=== PATIENT | female | born 1960 | race Caucasian/White ===

== ENCOUNTER 2018-09-22 10:38 | Emergency (ER) | payer BC ==
--- NOTE | 2018-09-22 10:50 | PDOC ---
History of Present Illness - General Chief Complaint: Revisit, Lab Variance Stated Complaint: SENT FOR REPEAT CBC HAD LOW HGB S/P KNEE SURGER Time Seen by Provider: 09/22/18 10:49 Past History - Past Medical History Allergies/Adverse Reactions: Allergies Allergy/AdvReac Type Severity Reaction Status Date / Time apricot Allergy Intermediate Itching Verified 09/22/18 10:45 mark Allergy Intermediate Itching Verified 09/22/18 10:44 pear Allergy Intermediate Itching Verified 09/22/18 10:44 plum Allergy Intermediate Itching Verified 09/22/18 10:44 pollen extracts Allergy Intermediate Itching Verified 09/22/18 10:45 Penicillins Allergy Mild Rash Verified 09/22/18 10:43 Home Medications: Ambulatory Orders Aspirin 81 mg PO BID 09/22/18 Meloxicam [Mobic] 7.5 mg PO DAILY 09/22/18 Oxycodone HCl 5 mg PO PRN 09/22/18 *DC/Admit/Observation/Transfer - Discharge Dispostion Condition at time of disposition: Stable - Referrals - Patient Instructions - Post Discharge Activity
[2018-09-22 11:02] VITALS: BP 105/47; PULSE 85; TEMP 98.1; BMI 25.6
[2018-09-22 11:27] LABS: BASO % 0.2 % (0-2.0); EOS % 1.5 % (0-4.5); HEMATOCRIT 28.2 % (32.4-45.2); LYMPH % 18.4 % (8-40); MCH 30.6 pg (25.7-33.7); MEAN CELL VOLUME 95.7 fl (80-96); MEAN PLT VOLUME 6.5 fl (7.5-11.1); MONO % 9.1 % (3.8-10.2); NEUT % 70.8 % (42.8-82.8); RBC 2.95 M/mm3 (3.60-5.2); RDW 15.8 % (11.6-15.6); WHITE BLOOD COUNT 6.3 K/mm3 (4.0-10.8)
[2018-09-22 11:40] LABS: ALBUMIN 3.6 g/dl (3.4-5.0); ALK PHOS 117 U/L (45-117); ANION GAP 8 MMOL/L (8-16); BILIRUBIN,TOTAL 1.9 mg/dl (0.2-1); BLOOD UREA NITROGEN 21 mg/dl (7-18); CALCIUM 9.4 mg/dl (8.5-10); CHLORIDE 106 mmol/L (98-107); CO2 24 mmol/L (21-32); CREATININE 0.5 mg/dl (0.55-1.3); GLUCOSE,RANDOM 84 mg/dl (74-106); POTASSIUM 4.5 mmol/L (3.5-5.1); SGOT/AST 38 U/L (15-37); SGPT/ALT 74 U/L (13-61); SODIUM 138 mmol/L (136-145)
[2018-09-22 11:53] LABS: PLATELET COUNT 632 K/MM3 (134-434)
[2018-09-22 11:55] LABS: PLATELET ESTIMATE INCREASED
--- NOTE | 2018-09-22 13:45 | PDOC ---
History of Present Illness - General Chief Complaint: Revisit, Lab Variance Stated Complaint: SENT FOR REPEAT CBC HAD LOW HGB S/P KNEE SURGER Time Seen by Provider: 09/22/18 10:49 - History of Present Illness Initial Comments: 09/22/18 13:36 58 years old with past medical history significant for recent bilateral knee replacement who presents to the emergency department for generalized weakness since her surgery She states that during her hospitalization at [facility] her hemoglobin was 7.6 she was instructed to follow up with her PCP this week to have it rechecked however her PCP recently moved and she did not have a doctor to follow-up with Complains only generalized weakness which has been persistent constant since the surgery no chest pain or shortness of breath no nausea no vomiting or diarrhea Symptoms are mild persistent constant with no exacerbating or relieving factors. Past History - Past Medical History Allergies/Adverse Reactions: Allergies Allergy/AdvReac Type Severity Reaction Status Date / Time apricot Allergy Intermediate Itching Verified 09/22/18 10:45 mark Allergy Intermediate Itching Verified 09/22/18 10:44 pear Allergy Intermediate Itching Verified 09/22/18 10:44 plum Allergy Intermediate Itching Verified 09/22/18 10:44 pollen extracts Allergy Intermediate Itching Verified 09/22/18 10:45 Penicillins Allergy Mild Rash Verified 09/22/18 10:43 Home Medications: Ambulatory Orders Aspirin 81 mg PO BID 09/22/18 Desloratadine 5 mg PO DAILY #30 tablet 09/22/18 Iron 18 mg PO DAILY 14 Days tablet 09/22/18 Meloxicam [Mobic] 7.5 mg PO DAILY 09/22/18 Montelukast Sodium [Singulair] 10 mg PO DAILY 30 Days tablet 09/22/18 Nedocromil Sodium [Alocril] 5 ml OP BID 30 Days drops 09/22/18 Oxycodone HCl 5 mg PO PRN 09/22/18 COPD: No Other medical history: DENIES - Suicide/Smoking/Psychosocial Hx Smoking History: Never smoked Information on smoking cessation initiated: No Hx Alcohol Use: No Drug/Substance Use Hx: No Review of Systems - Review of Systems Comments:: 09/22/18 13:37 ROS: A complete review of 10 out of 10 review of systems is taken and is negative apart from what is previously mentioned below and in the HPI. *Physical Exam - Vital Signs Last Vital Signs Temp Pulse Resp BP Pulse Ox 98.1 F 85 16 105/47 L 99 09/22/18 10:42 09/22/18 10:42 09/22/18 10:42 09/22/18 10:42 09/22/18 10:42 - Physical Exam Comments: 09/22/18 13:38 Vitals: Triage Vital signs reviewed General Appearance: no acute distress, well nourished well developed, Head: Atraumatic, Eyes: Pupils equal reactive round, extraocular movement intact Cardiac: Regular rate and rhythym, no murmurs, no rubs, no gallops, Lungs: Clear to auscultation bilateral, good air movement bilaterally, Abdomen: Soft, non distended, normal bowel sounds, non tender to palpation Extremities: Full range of motion to all extremities, Skin: Warm and dry, no rashes or lesions, no rash, no petechiae Psych: normal mood, normal affect ED Treatment Course - LABORATORY CBC & Chemistry Diagram: 09/22/18 11:10 09/22/18 11:10 - ADDITIONAL ORDERS Additional order review: Laboratory Results 09/22/18 11:10 Sodium 138 Potassium 4.5 Chloride 106 Carbon Dioxide 24 Anion Gap 8 BUN 21 H Creatinine 0.5 L Creat Clearance w eGFR 125.85 Random Glucose 84 Calcium 9.4 Total Bilirubin 1.9 H AST 38 H ALT 74 H Alkaline Phosphatase 117 Total Protein 6.0 L Albumin 3.6 09/22/18 11:10 RBC 2.95 L MCV 95.7 MCHC 32.0 RDW 15.8 H MPV 6.5 L Neutrophils % 70.8 Lymphocytes % 18.4 Monocytes % 9.1 Eosinophils % 1.5 Basophils % 0.2 - RADIOLOGY Radiology Studies Ordered: Category Date Time Status ABDOMEN US -LIMITED [US] Stat Ultrasound 09/22/18 12:13 Completed Medical Decision Making - Medical Decision Making 09/22/18 13:39 Presents emergency department for repeat hemoglobin CBC and chemistry check Hemoglobin 9 no indication for transfusion Chemistry notable for slightly elevated LFTs which patient states she has had before A follow-up ultrasound was ordered which demonstrates no acute pathology no CBD dilatation, no gallstones no gallbladder no pericholecystic fluid very mild gallbladder wall thickening for which the patient was provided with both clinic and GI follow-up. We will have the follow-up patient follow up in our clinic this week Findings, the need for follow-up and strict return instructions discussed with patient. 09/22/18 13:57 *DC/Admit/Observation/Transfer Diagnosis at time of Disposition: Weakness - Discharge Dispostion Disposition: HOME Condition at time of disposition: Stable Decision to Admit order: No - Prescriptions Prescriptions: Desloratadine 5 mg PO DAILY #30 tablet Iron 18 mg PO DAILY 14 Days tablet Montelukast Sodium [Singulair] 10 mg PO DAILY 30 Days tablet Nedocromil Sodium [Alocril] 5 ml OP BID 30 Days drops - Referrals Referrals: [facility] [place] [Provider Group] Ari Swanson DO [Staff Physician] - - Patient Instructions Printed Discharge Instructions: Anemia: How Food and Vitamins Can Help Additional Instructions: Follow-up with the [facility] this week. Call for an appointment for the clinic and with Dr. Swanson Gastroenterology. Take iron pills and other medications as prescribed. Return to ED for any severe worsening symptoms or for any concerns. - Post Discharge Activity
--- NOTE | 2018-09-24 17:53 | PDOC ---
*Physical Exam - Vital Signs Last Vital Signs Temp Pulse Resp BP Pulse Ox 98.1 F 85 16 105/47 L 99 09/22/18 10:42 09/22/18 10:42 09/22/18 10:42 09/22/18 10:42 09/22/18 10:42 - Physical Exam Comments: 09/24/18 17:50 Patient presents to the ER today stating that medications refilled by Dr. Lisa from the emergency room on September 22 were not received by the pharmacy. The medications, Montelukast and Alocril, were represcribed and sent to the pharmacy as requested by the patient. ED Treatment Course - LABORATORY CBC & Chemistry Diagram: 09/22/18 11:10 09/22/18 11:10 - ADDITIONAL ORDERS Additional order review: 09/22/18 11:10 RBC 2.95 L MCV 95.7 MCHC 32.0 RDW 15.8 H MPV 6.5 L Neutrophils % 70.8 Lymphocytes % 18.4 Monocytes % 9.1 Eosinophils % 1.5 Basophils % 0.2 *DC/Admit/Observation/Transfer Diagnosis at time of Disposition: Weakness - Discharge Dispostion Disposition: HOME Condition at time of disposition: Stable - Prescriptions Prescriptions: Desloratadine 5 mg PO DAILY #30 tablet Iron 18 mg PO DAILY 14 Days tablet Montelukast Sodium [Singulair] 10 mg PO DAILY 30 Days tablet Montelukast Sodium [Singulair] 10 mg PO DAILY #30 tablet Nedocromil Sodium [Alocril] 5 ml OP BID 30 Days drops Nedocromil Sodium [Alocril] 5 ml OP BID #1 bottle - Referrals Referrals: [facility] [place] [Provider Group] Ari Swanson DO [Staff Physician] - - Patient Instructions Printed Discharge Instructions: Anemia: How Food and Vitamins Can Help Additional Instructions: Follow-up with the [facility] this week. Call for an appointment for the clinic and with Dr. Swanson Gastroenterology. Take iron pills and other medications as prescribed. Return to ED for any severe worsening symptoms or for any concerns. - Post Discharge Activity
== END 2018-09-22 14:07 | disposition home or self-care (01) ==
LOC: FER 10:38
DX: R53.1 Weakness (principal); Z96.653 Presence of artificial knee joint, bilateral
CPT/HCPCS: 36415; 76705-TC; 80053; 85025; 99281-25